=== PATIENT | female | born 1985 | race Caucasian/White ===

== ENCOUNTER → 2019-07-24 | Outpatient (CLI) | payer BC ==
[2019-07-24 16:22] LABS: T4 (THYROXINE) 9.8 ug/dl (5.5-11.0)
== END | disposition home or self-care (01) ==
LOC: LAB 15:08
DX: E03.9 Hypothyroidism, unspecified (principal)
CPT/HCPCS: 84436; 84443

== ENCOUNTER 2019-08-07 19:25 | Emergency (ER) | payer BC ==
[2019-08-07 20:44] LABS: FREE THYROXINE INDEX (Calc) 4.81 ug/ml (0.65-3.89); T3 UPTAKE 35.1 % (23.5-40.5); T4 (THYROXINE) 13.7 ug/dl (5.5-11.0)
[2019-08-07 20:58] LABS: THYROID STIMULATING HORMONE 0.702 MIU/L (0.465-4.680)
[2019-08-09 12:06] LABS: PROGESTERONE 17.6 ng/mL
== END 2019-08-07 21:05 | disposition home or self-care (01) ==
LOC: FTE 19:25
DX: Z34.01 Encounter for supervision of normal first pregnancy, first trimester (principal); E03.9 Hypothyroidism, unspecified; O99.281 Endocrine, nutritional and metabolic diseases complicating pregnancy, first trimester; Z3A.01 Less than 8 weeks gestation of pregnancy
CPT/HCPCS: 36415; 84144; 84436; 84443; 84479; 99283